=== PATIENT | female | born 1995 | race Two or more races ===

== ENCOUNTER 2023-06-03 23:07 | Emergency (ER) | payer MEDICAID, OTHER ==
[~2023-06-03] VITALS: Ht 157.5 cm; Wt 77.0 kg
[2023-06-03 23:35] LABS: Basophils # (auto) 0 10 ^3/uL (0-0.2); Eosinophils # (auto) 0.1 10 ^3/uL (0-0.8); Hemoglobin 11.3 g/dL (12.2-16.2)
[2023-06-03 23:36] LABS: Basophils % (auto) 0.6 % (0.0-2.0); Eosinophils % (auto) 0.7 % (0.0-7.0); Hematocrit 34.7 % (36.0-46.0); Lymphocytes # (auto) 1.4 10 ^3/uL (0.4-5.4); Lymphocytes % (auto) 17.4 % (10.0-50.0); Mean Corpuscular Hemoglobin 24.6 pg (28.0-32.0); Mean Corpuscular Hgb Conc. 32.7 g/dL (32.0-36.0); Mean Corpuscular Volume 75.2 fL (80.0-100.0); Monocytes # (auto) 0.7 10 ^3/uL (0-1.3); Monocytes % (auto) 8.3 % (0.0-12.0); Neutrophils # (auto) 5.8 10 ^3/uL (1.6-8.6); Red Blood Cells 4.61 10^6/uL (4.0-5.20); Red Cell Distribution Width 18.2 % (11.8-14.3)
[2023-06-03 23:51] LABS: Alanine Aminotransferase 21 U/L (7-40); Albumin 4.3 g/dL (3.2-4.8); Alkaline Phosphatase 75 U/L (46-116); Anion Gap 6 (5-15); Aspartate Aminotransferase 22 U/L (13-40); Calcium 9.3 mg/dL (8.5-10.1); Carbon Dioxide 23 mmol/L (20-30); Chloride 107 mmol/L (98-107); Glucose 120 mg/dL (74-106); Potassium 3.4 mmol/L (3.5-5.1); Sodium 136 mmol/L (136-145)
[2023-06-03 23:52] LABS: BUN/Creatinine Ratio 8.1 (10.0-20.0); Bilirubin, Total 0.3 mg/dL (0.2-1.0); Blood Urea Nitrogen < 5 mg/dL (9-23); INR 0.99 (0.9-1.15); Partial Thromboplastin Time 27.6 SEC (24.5-34.5); Prothrombin Time 10.4 sec (9.3-11.8); Total Protein 7.3 g/dL (5.7-8.2)
[2023-06-04 00:43] LABS: COVID19 ANTIGEN SOFIA FIA POSITIVE (NEGATIVE); Rapid Influenza A Negative (Negative); Rapid Influenza B Negative (Negative)
[2023-06-04 00:45] LABS: Urine Bacteria NONE SEEN /hpf (None Seen); Urine Blood Negative /uL (Negative); Urine Clarity HAZY (Clear); Urine Color Yellow (Yellow); Urine Mucus FEW (None Seen); Urine Protein, UAD Negative (Negative); Urine Specific Gravity 1.017 (1.001-1.035); Urine WBC 30 /hpf (0 - 5); Urine pH 6.5 (5.0-8.0)
[2023-06-04] MEDS ORDERED: NITROFURANTOIN 100 mg CAP PO ONE (02:15)
[2023-06-04] MEDS ORDERED: ALBU108A5 IN (02:21)
[2023-06-04] MEDS ORDERED: ACET500T58 PO (02:21)
[2023-06-04] MEDS ORDERED: NITR-87 PO (02:21)
[2023-06-04 02:54] VITALS: BP 98/66; PULSE 97; RESP 16; TEMP 98.6; O2SAT 98
== END 2023-06-04 02:56 | disposition home or self-care (01) ==
LOC: ER 23:07
DX: O98.511 Other viral diseases complicating pregnancy, first trimester (principal); O23.41 Unspecified infection of urinary tract in pregnancy, first trimester; U07.1 COVID-19; N39.0 Urinary tract infection, site not specified; Z3A.10 10 weeks gestation of pregnancy; Z79.899 Other long term (current) drug therapy
CPT/HCPCS: 36415; 80053; 81001; 83735; 84484; 85025; 85610; 85730; 87426; 87804; 93005

== ENCOUNTER 2023-11-15 18:22 | Observation (INO) | payer MEDICAID ==
[~2023-11-15] VITALS: Ht 157.5 cm; Wt 82.6 kg
[~2023-11-15 18:22] MED LIST: ACET500T58 PO; ALBU108A5 IN; NITR-87 PO
[2023-11-15] MEDS: TERBUTALINE SULFATE 1 MG/ML 1ML VIAL SC ONE (19:16)
[2023-11-15] MEDS: TERBUTALINE SULFATE 1 MG/ML 1ML VIAL SC SCH (19:22)
[2023-11-15] MEDS: LACTATED RINGER'S 1,000 ML IV ONE (20:30)
[2023-11-15] MEDS ORDERED: ALBU108A5 IN (20:45)
[2023-11-15] MEDS ORDERED: NITR-87 PO (20:45)
[2023-11-15] MEDS ORDERED: PRENCAP11 PO (20:45)
[2023-11-15] MEDS ORDERED: NIF10C PO ×2 (21:33→22:52)
[2023-11-18] MEDS ORDERED: FER325T PO (08:02)
[2023-11-18] MEDS ORDERED: HYDR-4902 PO (08:02)
[2023-11-18] MEDS ORDERED: IBUP-1455 PO (08:02)
== END 2023-11-15 21:46 | disposition home or self-care (01) ==
LOC: LDRP 18:22
PROVIDERS: ADMIT Obstetrics & Gynecology; ATTEND Obstetrics & Gynecology
DX: O23.43 Unspecified infection of urinary tract in pregnancy, third trimester (principal); O24.419 Gestational diabetes mellitus in pregnancy, unspecified control; O76 Abnormality in fetal heart rate and rhythm complicating labor and delivery; O21.2 Late vomiting of pregnancy; O34.219 Maternal care for unspecified type scar from previous cesarean delivery; O99.513 Diseases of the respiratory system complicating pregnancy, third trimester; J45.909 Unspecified asthma, uncomplicated; Z3A.35 35 weeks gestation of pregnancy
CPT/HCPCS: 59025; 76805; 76818; 81002; 82948; 82962; 94760; 96360; 96372; G0378; J3105